=== PATIENT | male | born 1980 ===

== ENCOUNTER 2020-01-01 11:31 | Emergency (ER) | payer SELFPAY ==
--- OUTSIDE RECORDS SUMMARY | 2020-01-01 11:49 | XMS REPORT | Continuity of Care Document ---
:1980 Author Organization [facility] t Address [address] [place] [address] Care Team Providers Name Role Phone GRONING Attending Clinician Unavailable GRONING Admitting Clinician Unavailable Problems This patient has no known problems. Allergies, Adverse Reactions, Alerts This patient has no known allergies or adverse reactions. Medications This patient has no known medications. Procedures This patient has no known procedures. Results Test Description Test Time Test Comments Results Result Comments Source LIPASE, SERUM 2017-04-07 22:46:00 Test Item Value Reference Range Interpretation Comme nts Lipase (test code = LIPA) 155 U/L 8-223 AMYLASE, [id number] 22:46:00 Test Item Value Reference Range Interpretation Comments Amylase (test code = AMYL) 170 U/L 12-103 H [id number] 22:46:00 Test Item Value Reference Range Interpretation Comments Glucose (test code 97 mg/dl 75-110 = GLU) BUN (test code = 12.0 mg/dl 6.0-17.0 BUN) Creatinine (test 0.9 mg/dl 0.4-1.2 code = CREA) Sodium (test code = 142 mmol/l 137-145 NA) Potassium (test 6.0 mmol/l 3.5-5.0 H code = K) Chloride (test code 101 mmol/l 98-107 = CL) CO2 (test code = 29 mmol/l 22-30 CO2) Calcium (test code 10.1 mg/dl 8.4-10.2 = CALC) T Protein (test 8.4 gm/dl 5.1-8.7 code = TP) Albumin (test code 5.2 gm/dl 3.5-4.6 H = ALB) A/G Ratio (test 1.6 % 1.1-2.2 code = AGRAT) AST (SGOT) (test 48 U/L 11-36 H code = AST) ALT (SGPT) (test 64 U/L 11-40 H code = ALT) Alkaline Phos (test 69 U/L 47-114 code = ALKP) Total Bilirubin 0.6 mg/dl 0.2-1.2 (test code = TBIL) Globulin (test code 3.2 gm/dl 2.3-3.5 = GLOBU) Anion Gap (test 12 code = GAP) Calcium, Corrected 9.1 mg/dl 8.4-10.2 Various f ormulas exist (test code = for corrected s kevin CALCCORR) calcium results , each yielding differ ent values. This corrected resul t was based on the fo rmula: Corrected Calci um = SerumCalcium + [0.8 * ( 4 - SerumAlbu min)] EGFR if >60 Guamanian (test code mL/min/1.73m\ = EGFRAA) S\2 EGFR if Non- >60 Estimate d Glomerular Guamanian (test code mL/min/1.73m\ Filtrat ion Rate (eGFR) = EGFRNA) S\2 Reference Inter vals Decision Points for 18 years and older and average body ma ss: >= 60 Does not exc lude kidney disease. 30 - 59 Suggests modera te chronic kidney disease and indicat es the need for furthe r investigation including asses sment of proteinuria and cardiovascular factors. < 30 Usually in dicates a need for refe rral for assessment and management of c hronic kidney failure. CBC WITH AUTO [id number] 22:31:00 Test Item Value Reference Range Interpretation Comments WBC (test code = WBC) 8.93 10\S\3/ul 4.80-10.80 RBC (test code = RBC) 5.48 10\S\6/ul 4.70-6.10 Hemoglobin (test code = HGB) 17.0 gm/dl 14.0-18.0 Hematocrit (test code = HCT) 49.3 % 42.0-50.0 MCV (test code = MCV) 90.0 fL 80.0-94.0 MCH (test code = MCH) 31.0 pg 27.0-31.0 MCHC (test code = MCHC) 34.5 gm/dl 33.0-37.0 RDW (test code = RDWVC) 12.7 % 11.5-14.5 Platelet (test code = PLT) 258 10\S\3/ul 130-400 MPV (test code = MPV) 9.2 fL 7.4-10.4 A NE% (test code = NE) 46.8 % 42.0-75.0 LY% (test code = LY) 43.7 % 13.0-42.0 H MO% (test code = MO) 8.1 % 4.0-14.0 EO% (test code = EO) 0.0 % 1.0-3.0 L BA% (test code = BA) 1.0 % 1.0-3.0 IG% (test code = IG%) 0.4 % 0.0-0.4
[2020-01-01 12:22] LABS: Absolute Lymphocytes (CBC) 4.5 K/uL (0.7-4.9); Basophils % 1.1 % (0-1.3); Hematocrit 47.8 % (39.6-49.0); Lymphocytes % 51.4 % (15.3-44.8); MPV 7.7 fL (7.6-11.3); RBC Red Blood Cell Count 5.25 M/uL (4.33-5.43)
[2020-01-01] MEDS ORDERED: DIAZEPAM 10 MG/2 ML INJ SYRINGE ONE ×3 (12:24→14:16)
[2020-01-01] MEDS ORDERED: ONDANSETRON 4 MG/2 ML VIAL ONE (12:24)
[2020-01-01] MEDS ORDERED: NA CHLORIDE 0.9% 1,000 ML ONE (12:24)
[2020-01-01 12:27] LABS: Protime INR 1.15
[2020-01-01 12:43] LABS: ALT/SGPT 56 U/L (12-78); AST/SGOT 56 U/L (15-37); Alkaline Phosphatase 62 U/L (45-117); BUN Blood Urea Nitrogen 8 mg/dL (7-18); Bicarbonate 27 mmol/L (21-32); Bilirubin Direct 0.1 mg/dL (0-0.2); Bilirubin Total 0.6 mg/dL (0.2-1.0); Glucose Level 91 mg/dL (74-106); Potassium 3.8 mmol/L (3.5-5.1); Protein, Total 7.5 g/dL (6.4-8.2); Sodium Level 138 mmol/L (136-145)
[2020-01-01 13:03] LABS: Barbiturates NEGATIVE (NEGATIVE); Benzodiazepines NEGATIVE (NEGATIVE); Cocaine NEGATIVE (NEGATIVE); METHAMPHETAM NEGATIVE (NEGATIVE); Methadone NEGATIVE (NEGATIVE); Opiates NEGATIVE (NEGATIVE); Phencyclidine NEGATIVE (NEGATIVE); THC Cannibis NEGATIVE (NEGATIVE)
[2020-01-01 13:06] LABS: Blood Morphology Comment NOT SEEN (NOT SEEN); Platelet Estimate ADEQ
[2020-01-01 13:31] LABS: Urine Blood NEGATIVE (NEG); Urine Glucose NEGATIVE (NEG); Urine Protein NEGATIVE (NEG); Urine Specific Gravity 1.015 (1.005-1.030)
--- NOTE | 2020-01-01 14:17 | EDPHYS ---
Physician Documentation [facility] Name: Chris Davis Age: 39 yrs Sex: Male : 1980 Arrival Date: 01/01/2020 Time: 11:35 Bed 8 Private MD: ED Physician Dangelo Reyna HPI: 12/31 12:00 This 39 yrs old Male presents to ER via Ambulatory with complaints of Nausea/Vomiting, jmm Sore Throat. 12:00 The patient presents to the emergency department with nausea, vomiting. Onset: The jmm symptoms/episode began/occurred gradually, 3 day(s) ago. Possible causes: etoh. The symptoms are aggravated by nothing. The symptoms are alleviated by nothing. This is a 39 year old male with no known chronic medical conditions that presents to the ED with complaints of nausea and vomiting. Historical: - Allergies: 12:00 No Known Allergies; ll1 - PSHx: 12:00 None; ll1 - Immunization history:: Adult Immunizations up to date. - Social history:: Smoking status: Patient reports the use of cigarette tobacco products, smokes two packs cigarettes per day. Patient uses alcohol, on a daily basis. street drugs, marijuana, Patient/guardian denies using IV drugs, Patient uses alcohol, on a daily basis. "12 pack of beer or more daily, sometimes vodka and/or scotch". klonipin. ROS: 12:00 Constitutional: Negative for fever, chills, and weight loss, Cardiovascular: Negative jmm for chest pain, palpitations, and edema, Respiratory: Negative for shortness of breath, cough, wheezing, and pleuritic chest pain. 12:00 Abdomen/GI: Positive for vomiting. 12:00 All other systems are negative. Exam: 12:00 Constitutional: This is a well developed, well nourished patient who is awake, alert, jmm and in no acute distress. Head/Face: atraumatic. Eyes: EOMI, no conjunctival erythema appreciated ENT: Moist Mucus Membranes Neck: Trachea midline, Supple Chest/axilla: Normal chest wall appearance and motion. Cardiovascular: Regular rate and rhythm. No edema appreciated Respiratory: Normal respirations, no respiratory distress appreciated 12:00 Skin: General appearance color normal MS/ Extremity: Moves all extremities, no obvious deformities appreciated, no edema noted to the lower extremities Neuro: Awake and alert, normal gait Psych: Behavior is normal, Mood is normal, Patient is cooperative and pleasant 12:00 Abdomen/GI: Inspection: abdomen appears normal, Bowel sounds: normal, Palpation: abdomen is soft and non-tender. Vital Signs: 11:57 BP 129 / 92; Pulse 92; Resp 18; Temp 97.7; Pulse Ox 99% ; Pain 8/10; ll1 12:45 BP 141 / 88; Pulse 76; Resp 18; Pulse Ox 98% on R/A; ph 13:41 BP 119 / 78; Pulse 71; Resp 18; Pulse Ox 98% on R/A; ph MDM: 12:02 Patient medically screened. [facility] 14:13 Data reviewed: vital signs, nurses notes. Counseling: I had a detailed discussion with geneva the patient and/or guardian regarding: the historical points, exam findings, and any diagnostic results supporting the discharge/admit diagnosis, lab results, the need for outpatient follow up, to return to the emergency department if symptoms worsen or persist or if there are any questions or concerns that arise at home. ED course: Patient is alert and non toxic in appearance in the ED. Patient is advised to follow up with pcp for reevaluation. Patient is otherwise given strict return precautions. Patient understood and agrees with the plan of care. . 12/31 12:02 Order name: Acetaminophen; Complete Time: 12:46 [facility] 12/31 12:02 Order name: Basic Metabolic Panel; Complete Time: 12:46 [facility] 12/31 12:02 Order name: CBC with Diff; Complete Time: 13: [facility] 12/31 12:02 Order name: ETOH Level; Complete Time: 12:46 [facility] 12/31 12:02 Order name: Hepatic Function; Complete Time: 12:46 [facility] 12/31 12:02 Order name: PT-INR; Complete Time: 12:46 [facility] 12/31 12:02 Order name: Ptt, Activated; Complete Time: 12:46 [facility] 12/31 12:02 Order name: Salicylate; Complete Time: 12:46 [facility] 12/31 12:02 Order name: Urine Drug Screen; Complete Time: 13:06 [facility] 12/31 12:43 Order name: Urine Dipstick--Ancillary (enter results); Complete Time: 13:33 12/31 13:00 Order name: Manual Differential; Complete Time: 13:06 [facility] 12/31 12:02 Order name: EKG; Complete Time: 12:03 [facility] 12/31 12:02 Order name: EKG - Nurse/Tech; Complete Time: 12:39 [facility] 12/31 12:02 Order name: IV Saline Lock; Complete Time: 12:21 [facility] 12/31 12:02 Order name: Labs collected and sent; Complete Time: 12:22 [facility] 12/31 12:02 Order name: Urine Dipstick-Ancillary (obtain specimen); Complete Time: 12:39 [facility] 12/31 13:24 Order name: PO challenge [facility] Administered Medications: 12:20 Drug: NS 0.9% 1000 ml Route: IV; Rate: 1 bolus; Site: right antecubital; ph 12:21 Drug: Valium 5 mg Route: IVP; Site: right antecubital; ph 14:21 Follow up: Response: No adverse reaction iw 12:21 Drug: Zofran (Ondansetron) 4 mg Route: IVP; Site: right antecubital; ph 14:21 Follow up: Response: No adverse reaction iw 13:52 Drug: Valium 5 mg Route: IVP; Site: right antecubital; ph 14:21 Follow up: Response: No adverse reaction iw 14:21 Not Given (Duplicate Order): Valium 5 mg IVP once iw Disposition: 16:37 Co-signature as Attending Physician, Dangelo Reyna MD. rn Disposition: 01/01/20 14:16 Discharged to Home. Impression: Vomiting. - Condition is Stable. - Discharge Instructions: Delirium Tremens, Nausea and Vomiting, Adult. - Prescriptions for Zofran ODT 4 mg Oral tablet,disintegrating - place 1 tablet by TRANSLINGUAL route every 4-6 hours; 20 tablet. chlordiazepoxide HCl 25 mg Oral capsule - take 2 capsule by ORAL route 2-3 times daily up to 300 mg/day; 30 capsule. - Medication Reconciliation Form, Thank You Letter, Antibiotic Education, Prescription Opioid Use form. - Follow up: Private Physician; When: 2 - 3 days; Reason: Recheck today's complaints, Continuance of care, Re-evaluation by your physician. Signatures: Dis[facility] Bahman Leonard PA PA Stacie Sanchez RN RN iw Nieto, Roman, MD MD rn Hall, Patricia, RN RN Asia Abrams RN RN ll1 Corrections: (The following items were deleted from the chart) 14:29 14:16 01/01/2020 14:16 Discharged to Home. Impression: Vomiting. Condition is Stable. iw Forms are Medication Reconciliation Form, Thank You Letter, Antibiotic Education, Prescription Opioid Use. Follow up: Private Physician; When: 2 - 3 days; Reason: Recheck today's complaints, Continuance of care, Re-evaluation by your physician. geneva
--- NOTE | 2020-01-01 14:17 | ER ---
Nurse's Notes [facility] Name: Chris Davis Age: 39 yrs Sex: Male : 1980 Arrival Date: 01/01/2020 Time: 11:35 Bed 8 Private MD: Diagnosis: Vomiting Presentation: 12/31 11:57 Chief complaint: Patient states: N/V for 3 days. + daily ETOH use. Believes he is going ll1 through withdrawals. Coronavirus screen: Proceed with normal triage. Patient reports a cough. Patient denies shortness of breath or difficulty breathing. Patient denies measured and/or subjective temperature greater than 100.4F prior to today's visit. Patient denies travel on a cruise ship or to a country the [facility] currently lists as an affected area. Patient denies contact with known and/or suspected case of COVID-19. "Smokers cough". Ebola Screen: Patient denies travel to an Ebola-affected area in the 21 days before illness onset. Initial Sepsis Screen: Does the patient meet any 2 criteria? HR > 90 bpm. No. Patient's initial sepsis screen is negative. Risk Assessment: Do you want to hurt yourself or someone else? Patient reports no desire to harm self or others. Onset of symptoms was December 30, 2019. 11:57 Method Of Arrival: Ambulatory ll1 11:57 Acuity: ROYA 3 ll1 12:42 Initial Sepsis Screen: Does the patient have a suspected source of infection? No. ph Patient's initial sepsis screen is negative. Historical: - Allergies: 12:00 No Known Allergies; ll1 - PSHx: 12:00 None; ll1 - Immunization history:: Adult Immunizations up to date. - Social history:: Smoking status: Patient reports the use of cigarette tobacco products, smokes two packs cigarettes per day. Patient uses alcohol, on a daily basis. street drugs, marijuana, Patient/guardian denies using IV drugs, Patient uses alcohol, on a daily basis. "12 pack of beer or more daily, sometimes vodka and/or scotch". klonipin. Screenin:04 Abuse screen: Denies threats or abuse. Denies injuries from another. Nutritional ph screening: No deficits noted. Tuberculosis screening: No symptoms or risk factors identified. Fall Risk None identified. Assessment: 12:41 General: Appears in no apparent distress. comfortable, well groomed, Behavior is calm, ph cooperative, appropriate for age. Pain: Complains of pain in throat. Neuro: Level of Consciousness is awake, alert, obeys commands, Oriented to person, place, time, situation, Moves all extremities. Full function. Cardiovascular: Capillary refill < 3 seconds in bilateral fingers Patient's skin is warm and dry. Respiratory: Airway is patent Respiratory effort is even, unlabored, Respiratory pattern is regular, symmetrical. GI: Abdomen is round non-distended, Reports nausea, vomiting, Patient currently denies diarrhea. Derm: Skin is intact, is healthy with good turgor, Skin is pink, warm \\T\\ dry. Musculoskeletal: Circulation, motion, and sensation intact. Range of motion: intact in all extremities. 14:22 Reassessment: Patient appears in no apparent distress at this time. Patient and/or iw family updated on plan of care and expected duration. Pain level reassessed. Patient is alert, oriented x 3, equal unlabored respirations, skin warm/dry/pink. pt states symptoms improved, requesting discharge papers Patient states feeling better. Patient states symptoms have improved. Vital Signs: 11:57 BP 129 / 92; Pulse 92; Resp 18; Temp 97.7; Pulse Ox 99% ; Pain 8/10; ll1 12:45 BP 141 / 88; Pulse 76; Resp 18; Pulse Ox 98% on R/A; ph 13:41 BP 119 / 78; Pulse 71; Resp 18; Pulse Ox 98% on R/A; ph ED Course: 11:35 Patient arrived in ED. fj1 11:50 Bahman Leonard PA is PHCP. [facility] 11:50 Dangelo Reyna MD is Attending Physician. [facility] 11:59 Triage completed. ll1 12:01 Arm band placed on Patient placed in an exam room, on a stretcher. ll1 12:04 Patient has correct armband on for positive identification. Bed in low position. Call light in reach. Side rails up X 1. Pulse ox on. NIBP on. Door closed. Noise minimized. Warm blanket given. 12:05 Namita Anderson RN is Primary Nurse. ph 12:15 Initial lab(s) drawn, by sd, sent to lab. Inserted saline lock: 20 gauge in right ph antecubital area, using aseptic technique. Blood collected. 12:31 EKG done, by ED staff, reviewed by Bahman MYERS. formerly [facility] 12:44 Urine collected: clean catch specimen, clear. ph 13:40 No provider procedures requiring assistance completed. ph 14:29 IV discontinued, intact, bleeding controlled, No redness/swelling at site. Pressure iw dressing applied. Administered Medications: 12:20 Drug: NS 0.9% 1000 ml Route: IV; Rate: 1 bolus; Site: right antecubital; ph 12:21 Drug: Valium 5 mg Route: IVP; Site: right antecubital; ph 14:21 Follow up: Response: No adverse reaction iw 12:21 Drug: Zofran (Ondansetron) 4 mg Route: IVP; Site: right antecubital; ph 14:21 Follow up: Response: No adverse reaction iw 13:52 Drug: Valium 5 mg Route: IVP; Site: right antecubital; ph 14:21 Follow up: Response: No adverse reaction iw 14:21 Not Given (Duplicate Order): Valium 5 mg IVP once iw Outcome: 14:16 Discharge ordered by MD. bean 14:29 Discharged to home ambulatory. iw 14:29 Condition: good 14:29 Discharge instructions given to patient, Instructed on discharge instructions, follow up and referral plans. medication usage, Demonstrated understanding of instructions, follow-up care, medications, Prescriptions given X 2. 14:29 Patient left the ED. iw Signatures: Bahman Leonard PA PA jmm Williams, Irene, RN RN Namita Anderson RN RN Desiree Bridges formerly [facility] [place] [facility] Asia Leavitt RN RN ll1
[2020-01-01 14:39] VITALS: TEMP 97.7
[2020-01-01 14:40] VITALS: O2SAT 98
[2020-01-01 14:42] VITALS: BP 119/78
--- NOTE | 2020-01-02 07:53 | EKG ---
Test Date: 2020-01-01 Test Time: 12:31:00 Curtain Cleaner: TALON MEASUREMENT RESULTS: Intervals: Rate: 82 IL: 148 QRSD: 82 QT: 402 QTc: 469 Valera: P: 44 IL: 148 QRS: 20 T: 46 INTERPRETIVE STATEMENTS: Normal sinus rhythm Septal infarct, age undetermined Abnormal ECG No previous ECG available for comparison Electronically Signed On 01-02-20 07:52:01 CDT by Fortino Navarro
== END 2020-01-01 14:29 | disposition home or self-care (01) ==
LOC: ER 11:31
DX: R11.2 Nausea with vomiting, unspecified (principal)
CPT/HCPCS: 36415; 80048; 80076; 80307; 80320; 80329; 81003; 85025; 85610; 85730; 93005; 96374; 96375; 99284; J2405; J3360; J7030